=== PATIENT | male | born 1965 | race Caucasian/White ===

== ENCOUNTER 2019-04-26 23:34 | Emergency (ER) | payer SELFPAY ==
[~2019-04-26] VITALS: Ht 175.3 cm; Wt 70.3 kg
--- OUTSIDE RECORDS SUMMARY | 2019-04-26 23:44 | XMS REPORT | Continuity of Care Document ---
Author Organization Unknown Address Unknown Allergies There is no data. Medications There is no data. Problems There is no data. Procedures There is no data. Results There is no data. Encounters ACCT No. Visit Date/Time Discharge Status Pt. Type Provider Facility Loc./Unit Complaint [id number] 04/18/2019 14:20:00 04/18/2019 23:59:59 CLS Outpatient [facility]
[2019-04-27] MEDS ORDERED: NS IV 1000 ML 1,000 ML IV SCH (00:21)
--- NOTE | 2019-04-27 00:25 | ED Abdominal Pain ---
General Stated Complaint: ABD PAIN Source of Information: Patient, Spouse Exam Limitations: No Limitations History of Present Illness Date Seen by Provider: Apr 27, 2019 Time Seen by Provider: 00:10 Initial Comments For the past week patient is experiencing some abdominal pain, difficulty having bowel movements or passing gas. He went to urgent care was put on ciprofloxacin and Flagyl. A plain film x-ray was obtained showing what he describes as pockets of gas everywhere. He said he took the antibiotics for that made his bowels just feel worse but they were on fire. He has been in the past a few small little ribbons of stool in the past day and felt a little better yesterday so he went to work but could not complete a days worth of work. He comes in today because he still cannot pass stool or gas and has decreased appetite occasional nausea and pain in his abdomen. He has never had a colonoscopy although his urgent care doctor was going to set him up with a surgeon on 22 May. He has no history of abdominal surgeries. He had a back surgery over 20 years ago. Does not have any significant medical problems nor does he follow with a physician. Allergies and Home Medications Allergies Coded Allergies: morphine (Verified Allergy, Unknown, blue arm, 04/27/19) Patient Home Medication List Home Medication List Reviewed: Yes Review of Systems Review of Systems Constitutional: No chills, No diaphoresis, No fever, No malaise EENTM: No Blurred Vision, No Double Vision Respiratory: Denies Cough, Denies Shortness of Air Cardiovascular: Denies Chest Pain, Denies Edema Gastrointestinal: See HPI; Denies Abdomen Distended; Abdominal Pain, Constipated; Denies Diarrhea; Nausea; Denies Vomiting Genitourinary: Denies Burning, Denies Discharge Musculoskeletal: No back pain, No joint pain Past Fcrqpmy-Obmrgi-Ofsndk Hx Patient Social History Alcohol Use: Denies Use Recreational Drug Use: No Smoking Status: Never a Smoker Recent Foreign Travel: No Contact w/Someone Who Travel: No Physical Exam Vital Signs Vital Signs - First Documented 04/26/19 23:55 Temp 96.2 Pulse 66 Resp 20 B/P (MAP) 146/102 (117) Pulse Ox 97 O2 Delivery Room Air Capillary Refill : Height/Weight/BMI Height: '" Weight: lbs. oz. kg; BMI Method: General Appearance: WD/WN, mild distress HEENT: PERRL/EOMI, normal ENT inspection, pharynx normal Neck: full range of motion, normal inspection Respiratory: lungs clear, normal breath sounds, no respiratory distress, no accessory muscle use Cardiovascular: normal peripheral pulses, regular rate, rhythm, no edema Peripheral Pulses: 2+ Radial Pulses (R), 2+ Radial Pulses (L) Gastrointestinal: no organomegaly, abnormal bowel sounds, guarding, tenderness (left lower quadrant and suprapubic) Extremities: normal inspection, no pedal edema, normal capillary refill Neurologic/Psychiatric: alert, normal mood/affect, oriented x 3 Skin: normal color, warm/dry Progress/Results/Core Measures Results/Orders Lab Results Laboratory Tests Test 04/27/19 00:05 04/27/19 00:14 04/27/19 00:40 Range/Units White Blood Count 17.0 H 4.3-11.0 10^3/uL Red Blood Count 4.67 4.35-5.85 10^6/uL Hemoglobin 15.0 13.3-17.7 G/DL Hematocrit 44 40-54 % Mean Corpuscular Volume 94 80-99 FL Mean Corpuscular Hemoglobin 32 25-34 PG Mean Corpuscular Hemoglobin Concent 34 32-36 G/DL Red Cell Distribution Width 13.2 10.0-14.5 % Platelet Count 433 H 130-400 10^3/uL Mean Platelet Volume 9.6 7.4-10.4 FL Neutrophils (%) (Auto) 81 H 42-75 % Lymphocytes (%) (Auto) 9 L 12-44 % Monocytes (%) (Auto) 9 0-12 % Eosinophils (%) (Auto) 1 0-10 % Basophils (%) (Auto) 0 0-10 % Neutrophils # (Auto) 13.8 H 1.8-7.8 X 10^3 Lymphocytes # (Auto) 1.5 1.0-4.0 X 10^3 Monocytes # (Auto) 1.5 H 0.0-1.0 X 10^3 Eosinophils # (Auto) 0.2 0.0-0.3 10^3/uL Basophils # (Auto) 0.0 0.0-0.1 10^3/uL Neutrophils % (Manual) 83 % Lymphocytes % (Manual) 10 % Monocytes % (Manual) 5 % Eosinophils % (Manual) 0 % Basophils % (Manual) 0 % Band Neutrophils 2 % Blood Morphology Comment NORMAL Urine Color YELLOW Urine Clarity CLEAR Urine pH 5 5-9 Urine Specific [place] 1.020 1.016-1.022 Urine Protein 1+ H NEGATIVE Urine Glucose (UA) NEGATIVE NEGATIVE Urine Ketones 1+ H NEGATIVE Urine Nitrite NEGATIVE NEGATIVE Urine Bilirubin NEGATIVE NEGATIVE Urine Urobilinogen NORMAL NORMAL MG/DL Urine Leukocyte Esterase 1+ H NEGATIVE Urine RBC (Auto) 1+ H NEGATIVE Urine RBC RARE /HPF Urine WBC 0-2 /HPF Urine Squamous Epithelial Cells RARE /HPF Urine Crystals NONE /LPF Urine Bacteria TRACE /HPF Urine Casts NONE /LPF Urine Mucus MODERATE H /LPF Urine Culture Indicated NO Sodium Level 136 135-145 MMOL/L Potassium Level 3.4 L 3.6-5.0 MMOL/L Chloride Level 98 98-107 MMOL/L Carbon Dioxide Level 25 21-32 MMOL/L Anion Gap 13 5-14 MMOL/L Blood Urea Nitrogen 11 7-18 MG/DL Creatinine 0.80 0.60-1.30 MG/DL Estimat Glomerular Filtration Rate > 60 BUN/Creatinine Ratio 14 Glucose Level 105 70-105 MG/DL Calcium Level 8.9 8.5-10.1 MG/DL Corrected Calcium 9.1 8.5-10.1 MG/DL Magnesium Level 2.1 1.8-2.4 MG/DL Total Bilirubin 0.2 0.1-1.0 MG/DL Aspartate Amino Transf (AST/SGOT) 10 5-34 U/L Alanine Aminotransferase (ALT/SGPT) 6 0-55 U/L Alkaline Phosphatase 62 40-136 U/L C-Reactive Protein High Sensitivity 7.57 H 0.00-0.50 MG/DL Total Protein 7.0 6.4-8.2 GM/DL Albumin 3.7 3.2-4.5 GM/DL Lipase 6 L 8-78 U/L My Orders Orders - CRISTOBAL ANNE Ua Culture If Indicated (04/27/19 00:21) Cbc With Automated Diff (04/27/19 00:21) Lipase (04/27/19 00:21) Comprehensive Metabolic Panel (04/27/19 00:21) Hs C Reactive Protein (04/27/19 00:21) Magnesium (04/27/19 00:21) Diatrizoate Meglum/Sodium 37% (Gastrogra (04/27/19 00:30) Ondansetron Injection (Zofran Injectio (04/27/19 00:30) Ct Abdomen/Pelvis W (04/27/19 00:21) Ed Iv/Invasive Line Start (04/27/19 00:21) Ns Iv 1000 Ml (Sodium Chloride 0.9%) (04/27/19 00:21) Manual Differential (04/27/19 00:05) Ondansetron Injection (Zofran Injectio (04/27/19 03:00) Ketorolac Injection (Toradol Injection) (04/27/19 03:00) Piperacillin/Tazobactam (Bulk) (Zosyn In (04/27/19 04:30) Piperacillin Sodium/Tazobactam (Zosyn Vi (04/27/19 04:29) Iohexol Injection (Omnipaque 350 Mg/Ml 1 (04/27/19 04:45) Ns (Ivpb) (Sodium Chloride 0.9% Ivpb Bag (04/27/19 04:45) Diatrizoate Meglum/Sodium 37% (Gastrogra (04/27/19 04:45) Fentanyl Injection (Sublimaze Injection (04/27/19 05:30) Medications Given in ED Current Medications Medications Dose Ordered Sig/[place] Route Start Time Stop Time Status Last Admin Dose Admin Diatrizoate Meglum/ Diatrizoate Sod 120 ml ONCE ONCE PO 04/27/19 00:30 04/27/19 00:31 DC 04/27/19 04:40 20 ML Fentanyl Citrate 50 mcg ONCE ONCE IVP 04/27/19 05:30 04/27/19 05:31 DC 04/27/19 05:45 50 MCG Iohexol 100 ml ONCE ONCE IV 04/27/19 04:45 04/27/19 05:11 DC 04/27/19 04:40 100 ML Ketorolac Tromethamine 30 mg ONCE ONCE IVP 04/27/19 03:00 04/27/19 03:01 DC 04/27/19 02:55 30 MG Ondansetron HCl 4 mg ONCE ONCE IVP 04/27/19 00:30 04/27/19 00:31 DC 04/27/19 00:35 4 MG Ondansetron HCl 8 mg ONCE ONCE IVP 04/27/19 03:00 04/27/19 03:01 DC 04/27/19 02:54 8 MG Piperacillin Sod/ Tazobactam Sod 4.5 gm/Sodium Chloride 120 ml @ 240 mls/hr ONCE ONCE IV 04/27/19 04:30 04/27/19 04:59 DC 04/27/19 04:45 240 MLS/HR Sodium Chloride 80 ml ONCE ONCE IV 04/27/19 04:45 04/27/19 05:11 DC 04/27/19 04:40 80 ML Vital Signs/I&O 04/26/19 23:55 Temp 96.2 Pulse 66 Resp 20 B/P (MAP) 146/102 (117) Pulse Ox 97 O2 Delivery Room Air Progress Progress Note : Time: 01:18 Progress Note Concern for bowel obstruction. Plan to get a CT of the abdomen pelvis with Gastrografin and IV contrast. Patient does not live for pain right now. Him some Zofran to go with Gastrografin. Basic labs. Diagnostic Imaging Diagonstic Imaging: CT (IV and oral contrast) Plain Films/CT/US/NM/MRI: abdomen, pelvis Comments Findings suggest perforated enteritis with 5 cm abscess in the lower abdomen. Reviewed: Reviewed by Me Departure Impression Primary Impression: Enteritis Additional Impression: Intra-abdominal abscess Disposition: XFER SHT-TRM HOSP Condition: Stable Transfer Time Spoke to Accepting Phy: 04:40 Transfer Progress Notes Discussed the case with triage nurse and she will call the surgeon and call us back. 0435: Discussed the case with Dr. Guo General Surgery and he agrees to accept the patient to the ER. 0440: Discussed case with ER doctor, Dr. Genao and he agrees to accept the pa tient. Transfer Time: 05:50 Transfer Facility: [facility] [place] Method of Transfer: EMS Departure-Patient Inst. Referrals: NO,LOCAL PHYSICIAN (PCP/Family) Primary Care Physician CRISTOBAL ANNE Apr 27, 2019 00:25
[2019-04-27 00:27] LABS: BILIRUBIN,URINE NEGATIVE (NEGATIVE); CLARITY,URINE CLEAR; COLOR,URINE YELLOW; GLUCOSE, URINE (UA) NEGATIVE (NEGATIVE); KETONES,URINE 1+ (NEGATIVE); LEUKOCYTE ESTERASE ,URINE 1+ (NEGATIVE); NITRITE,URINE NEGATIVE (NEGATIVE); PH,URINE 5 (5-9); PROTEIN,URINE 1+ (NEGATIVE); UROBILINOGEN,URINE NORMAL (NORMAL)
[2019-04-27 00:29] LABS: BASOPHILS % (AUTO) 0 % (0-10); EOSINOPHILS # (AUTO) 0.2 10^3/uL (0.0-0.3); EOSINOPHILS % (AUTO) 1 % (0-10); HEMATOCRIT 44 % (40-54); LYMPHOCYTES # (AUTO) 1.5 X 10^3 (1.0-4.0); LYMPHOCYTES % (AUTO) 9 % (12-44); MEAN CORPUSCULAR HEMOGLOBIN 32 PG (25-34); MEAN CORPUSCULAR HGB CONC 34 G/DL (32-36); MEAN CORPUSCULAR VOLUME 94 FL (80-99); MEAN PLATELET VOLUME 9.6 FL (7.4-10.4); MONOCYTES # (AUTO) 1.5 X 10^3 (0.0-1.0); MONOCYTES % (AUTO) 9 % (0-12); NEUTROPHILS # (AUTO) 13.8 X 10^3 (1.8-7.8); NEUTROPHILS % (AUTO) 81 % (42-75); PLATELET COUNT 433 10^3/uL (130-400); RED CELL DISTRIBUTION WIDTH 13.2 % (10.0-14.5)
[2019-04-27] MEDS ORDERED: DIATRIZOATE MEGLUM/SODIUM 37% 120 ML (GASTROGRAFIN) PO ONE ×2 (00:30→04:45)
[2019-04-27] MEDS ORDERED: ONDANSETRON 4 MG/2 ML (SDV) Z0FRAN IVP ONE ×2 (00:30→03:00)
[2019-04-27 00:40] LABS: BACTERIA,URINE TRACE /HPF; RBC,URINE RARE /HPF; SQUAMOUS EPITHELIAL CELL,UR RARE /HPF; WBC,URINE 0-2 /HPF
[2019-04-27 00:41] LABS: BAND NEUTROPHILS 2 %; BASOPHILS % (MANUAL) 0 %; EOSINOPHILS % (MANUAL) 0 %; LYMPHOCYTES % (MANUAL) 10 %; MONOCYTES % (MANUAL) 5 %; NEUTROPHILS % (MANUAL) 83 %; RBC MORPH NORMAL
[2019-04-27 01:09] LABS: ALANINE AMINOTRANSFERASE 6 U/L (0-55); ALBUMIN 3.7 GM/DL (3.2-4.5); ALKALINE PHOSPHATASE 62 U/L (40-136); BILIRUBIN,TOTAL 0.2 MG/DL (0.1-1.0); BUN/CREATININE RATIO 14; CALCIUM 8.9 MG/DL (8.5-10.1); CARBON DIOXIDE 25 MMOL/L (21-32); CHLORIDE 98 MMOL/L (98-107); GFR ESTIMATED > 60; GLUCOSE 105 MG/DL (70-105); LIPASE 6 U/L (8-78); MAGNESIUM 2.1 MG/DL (1.8-2.4); POTASSIUM 3.4 MMOL/L (3.6-5.0); SODIUM 136 MMOL/L (135-145)
--- NOTE | 2019-04-27 01:56 | NUR ---
PT RETURNS FROM CT DEPT VIA W/C. NO S/S OF DISTRESS
[2019-04-27] MEDS ORDERED: KETOROLAC 30 MG/ML VIAL IVP ONE (03:00)
[2019-04-27] MEDS ORDERED: PIPERACILLIN/TAZO 4.5 GM VIAL (ZOSYN) IV ONE (04:29)
[2019-04-27] MEDS ORDERED: PIPERACILLIN/TAZOBACTAM (BULK) 4.5 GM in NS (IVPB) 100 ML IV ONE (04:30)
[2019-04-27] MEDS ORDERED: IOHEXOL 350 MG/ML 100 ML (OMNIPAQUE 350) VIAL IV ONE (04:45)
[2019-04-27] MEDS ORDERED: NS 100 ML (IVPB) BAG IV ONE (04:45)
[2019-04-27] MEDS ORDERED: fentaNYL INJECTION 100 MCG/2 ML AMP IVP ONE (05:30)
[2019-04-27 05:50] VITALS: BP 146/102
--- NOTE | 2019-04-27 06:51 | Diagnostic Imaging Report ---
PROCEDURE: CT abdomen and pelvis with contrast. TECHNIQUE: Multiple contiguous axial images were obtained through the abdomen and pelvis after administration of intravenous contrast. Auto Exposure Controls were utilized during the CT exam to meet ALARA standards for radiation dose reduction. INDICATION: Abdominal pain. There are no prior studies available for comparison. FINDINGS: The images through the lower abdomen and pelvis show thickening of the wall of several segments of small bowel. There are also numerous dilated gas and fluid segments of the jejunum present. This appearance is nonspecific but does suggest an inflammatory/infectious process. Furthermore, there is a 3.7 x 4.0 cm air-fluid level in the mid abdomen at the level of the sacral promontory. This does suggest an abscess. There is no significant free fluid collection. The appendix was not well visualized due to the patient's paucity of retroperitoneal fat. The liver, spleen, pancreas, adrenals, gallbladder, aorta and inferior vena cava show no sign of an acute abnormality. The urinary bladder and prostate gland are grossly unremarkable. The stomach is filled with oral contrast and difficult to assess. The lung bases are clear. The bone windows show a 30-40% compression deformity of the inferior endplate of T12. I suspect this is long-standing in nature. There is no acute bony abnormality noted. There is fairly severe degenerative disc and bony disease at L4-L5, however. IMPRESSION: 1. There are several segments of small bowel low in the pelvis which do show thickening of the wall. This does suggest edema/inflammation. Dilated gas and fluid-filled segments of small bowel are also seen in the left mid abdomen. In addition, there does appear to be a roughly 4 cm pelvic abscess at the level of the sacral promontory. 2. There is no acute abnormality of the abdomen or pelvis noted otherwise. 3. These results were conveyed to the ER by our [employer] service at 4:14 a.m. on 04/27/2019. Dictated by: Dictated on workstation # [id number]
== END 2019-04-27 05:50 | disposition short-term general hospital (02) ==
LOC: ER 23:41
DX: K52.9 Noninfective gastroenteritis and colitis, unspecified (principal); K65.1 Peritoneal abscess; Z88.5 Allergy status to narcotic agent
CPT/HCPCS: 36415; 74177; 80053; 81000; 83690; 83735; 85007; 85027; 86141